=== PATIENT | male | born 1955 | race Caucasian/White ===

== ENCOUNTER 2021-04-26 17:40 | Emergency (ER) | payer OTHER ==
[~2021-04-26] VITALS: Ht 175.3 cm; Wt 98.9 kg
[2021-04-26 17:56] VITALS: BP 150/68
--- NOTE | 2021-04-26 18:13 | NUR ---
66 Y MALE BIBA FROM HOME DUE TO CELLULITIS OF R FOOT. PT WAS SEEN AT URGENT CARE AND REFERRED TO COME DUE TO INFECTION IN HIS FOOT. PT DENIES PAIN IN HIS FOOT AT THIS TIME, BUT STATED HE ALSO HAS A LINCOLN AND MINOR ABDOMINAL PAIN AT THIS TIME. PT STATED +N/+V TODAY. UPON ASSESSMENT PAIN IS CURRENTLY 4/10 AND THROBBING LIKE PAIN. PT DENIES ANY SOB, CHEST PAIN AT THIS TIME. BOWEL SOUNDS ACTIVE AND STOMACH IS FIRM TO TOUCH. ALSO, NOTICABLE SWELLING, REDNESS, AND THREE WOUNDS NOTED ON R FOOT. PMH: HTN, DM, HDL NKA
--- NOTE | 2021-04-26 18:50 | NUR ---
18 G IV ESTABLISHED IN R AC. BLOOD WORK COLLECTED FROM IV AND HANDED TO AIR DRIER MACHINE OPERATOR NEY
--- NOTE | 2021-04-26 18:51 | NUR ---
URINE COLLECTED BEDSIDE AND HANDED TO REGULATORY LEADER
--- NOTE | 2021-04-26 19:10 | NUR ---
ASSUMED CARE OF PATIENT AT THIS TIME.
--- NOTE | 2021-04-26 19:12 | NUR ---
Pt report given to LILO GUTHRIE. Transfer of care at this time.
[2021-04-26 19:13] LABS: BASOPHILS % (AUTO) 0.2 % (0.0-2.0); EOSINOPHILS # (AUTO) 0.1 K/uL (0-0.4); EOSINOPHILS % (AUTO) 0.8 % (0.0-4.0); HEMATOCRIT 33.9 % (36-52); HEMOGLOBIN 11.1 g/dL (12.0-18.0); LYMPHOCYTES # (AUTO) 0.9 K/uL (2.0-11.5); LYMPHOCYTES % (AUTO) 7.2 % (20.5-51.1); MEAN CORPUSCULAR HEMOGLOBIN 26 pg (27-31); MEAN CORPUSCULAR HGB CONC 33 g/dL (33-37); MEAN CORPUSCULAR VOLUME 79.6 fL (80-94); MONOCYTES % (AUTO) 8.1 % (1.7-9.3); NEUTROPHILS # (AUTO) 10.3 K/uL (1.8-7.7); NEUTROPHILS % (AUTO) 83.7 % (42.2-75.2); PLATELET COUNT (AUTO) 282 K/uL (140-450); RED BLOOD CELL COUNT(AUTO) 4.26 MIL/uL (4.20-6.10); RED CELL DISTRIBUTION WIDTH 19.5 % (11.6-13.7); WHITE BLOOD COUNT (AUTO) 12.2 K/uL (4.8-10.8)
[2021-04-26 19:29] LABS: ANION GAP 12.7 (8-16); CARBON DIOXIDE 27.7 mmol/L (21-32); CREATININE 1.5 mg/dL (0.6-1.3); POTASSIUM 4.4 mmol/L (3.5-5.1); TOTAL BILIRUBIN 0.7 mg/dL (0.0-1.0)
--- NOTE | 2021-04-26 19:33 | NUR ---
FILIBERTO RAINES ADVISED OF 415 BGL
[2021-04-26] MEDS ORDERED: NACL 0.9% 1,000 ML IV ONE ×2 (19:35)
[2021-04-26] MEDS ORDERED: ceFAZolin 1,000 MG VIAL IV ONE (19:35)
--- NOTE | 2021-04-26 20:45 | NUR ---
SURAJ CAICEDO DAUGHTER POA
--- NOTE | 2021-04-26 22:30 | NUR ---
SOF TAKENT TO LAB
--- NOTE | 2021-04-26 23:36 | NUR ---
REPEAT BGL 488, ER ADVISED. STATED SHE WILL INPUT ORDER FOR INSULIN
[2021-04-26] MEDS ORDERED: INSULIN REGULAR, HUMAN 100 UNIT/ML VIAL SUBQ ONE (23:55)
--- NOTE | 2021-04-27 02:04 | NUR ---
DELORES NAGY GIVEN REPORT AT THIS TIME, ADVISED PENDING EMS ARRIVAL FOR TRANSPORT.
--- NOTE | 2021-04-27 03:25 | NUR ---
EMS ARRIVED AT THIS TIME FOR TRANSPORT.
[2021-04-27 03:34] VITALS: BP 153/88
== END 2021-04-27 03:40 | disposition short-term general hospital (02) ==
LOC: MED 17:40
DX: M14.671 Charcot's joint, right ankle and foot (principal); A41.9 Sepsis, unspecified organism; E11.65 Type 2 diabetes mellitus with hyperglycemia; E78.00 Pure hypercholesterolemia, unspecified; Z20.822 Contact with and (suspected) exposure to COVID-19
CPT/HCPCS: 36415; 73630; 80053; 83605; 85025; 87040; 87426; 96361; 96372; 96374; 99285; J0690; J1815; J7030; Q0092